=== PATIENT | female | born 1940 | race Caucasian/White ===

== ENCOUNTER 2021-05-31 21:12 | Observation (INO) ==
[2021-05-31 22:01] LABS: ABS Basophils 0.1 10^3/ul (0-0.2); ABS Eosinophils 0.4 10^3/ul (0-0.6); ABS Lymphocytes 1.1 10^3/ul (1.0-4.8); ABS Monocytes 0.5 10^3/ul (0-0.8); Eosinophil % 7.9 %; Hematocrit 41 % (35-47); Hemoglobin 13.9 g/dL (12.0-16.0); Lymphocyte % 21.5 %; Mean Corpuscular HGB Conc 34 g/dL (31-36); Mean Corpuscular Hemoglobin 29 pg (27-31); Mean Corpuscular Volume 86 fL (80-97); Mean Platelet Volume 8.3 fL (7.4-10.4); Nucleated Red Blood Cells % 0.1; Platelet Count 266 10^3/uL (150-450); Red Blood Count 4.76 10^6 /uL (3.70-4.87); Red Cell Distribution Width 15 % (10-15); White Blood Count 5.1 10^3/uL (3.5-10.8)
[2021-05-31 22:15] LABS: INR 0.99 (0.86-1.15)
[2021-05-31 22:18] LABS: ALT 10 U/L (7-52); AST 20 U/L (13-39); Albumin 4.5 g/dL (3.2-5.2); Albumin/Globulin Ratio 1.5 (1-3); Alkaline Phosphatase 64 U/L (35-149); Anion Gap 9 mmol/L (2-11); Blood Urea Nitrogen 13 mg/dL (6-24); CO2 Carbon Dioxide 28 mmol/L (22-32); Chloride 98 mmol/L (101-111); Glucose 118 mg/dL (70-100); Magnesium 1.8 mg/dL (1.9-2.7); Potassium 3.1 mmol/L (3.5-5.0); Sodium 135 mmol/L (135-145); Total Protein 7.5 g/dL (6.4-8.9)
[2021-05-31] MEDS ORDERED: Nitro 2% OINT (Nitroglycerin) 1 INCH/PAK TOPICAL ONE (22:22)
[2021-05-31] MEDS ORDERED: Magnesium Sulfate IV 1GM/100ML 1 GM/100 ML BAG IV ONE (22:23)
[2021-05-31] MEDS ORDERED: Potassium Chlor 10 meq TAB PO ONE (22:25)
[2021-05-31 22:38] LABS: Troponin I 0.05 ng/mL (<0.03)
[2021-05-31] MEDS ORDERED: Diltiazem IV BAG D5W Premix 125 MG/125 ML BAG IV SCH (23:00)
[2021-05-31 23:53] LABS: Rapid COVID-19 Molecular Undetected (Undetected)
[2021-06-01] MEDS ORDERED: Heparin DRIP 25,000 UNITS BAG 25,000 UNITS/500 ML BAG IV SCH ×2 (00:15→05:15)
[2021-06-01 00:44] LABS: Troponin I 0.06 ng/mL (<0.03)
[2021-06-01] MEDS ORDERED: Heparin 5000 UNITS/ML 1 mL VIAL IV SCH ×2 (01:00→06:00)
[2021-06-01] MEDS ORDERED: Albuterol HFA INHALER 8 gm MDI INH PRN (02:24)
[2021-06-01 04:01] LABS: Cholesterol 172 mg/dL; HDL Cholesterol 44.5 mg/dL; LDL Cholesterol 102 mg/dL; Triglycerides 127 mg/dL
[2021-06-01 04:34] LABS: Troponin I 0.08 ng/mL (<0.03)
[2021-06-01] MEDS ORDERED: Nitro 2% OINT (Nitroglycerin) 1 INCH/PAK TOPICAL ONE (05:10)
[2021-06-01] MEDS ORDERED: Heparin 5000 UNITS/ML 1 mL VIAL SUBCUT SCH (06:00)
[2021-06-01 06:26] LABS: ABS Basophils 0.1 10^3/ul (0-0.2); ABS Eosinophils 0.3 10^3/ul (0-0.6); ABS Lymphocytes 0.9 10^3/ul (1.0-4.8); ABS Monocytes 0.6 10^3/ul (0-0.8); ABS Neutrophils 3.5 10^3/ul (1.5-7.7); Eosinophil % 5.4 %; Hematocrit 38 % (35-47); Hemoglobin 12.5 g/dL (12.0-16.0); Lymphocyte % 17.2 %; Mean Corpuscular HGB Conc 33 g/dL (31-36); Mean Corpuscular Hemoglobin 29 pg (27-31); Mean Corpuscular Volume 87 fL (80-97); Mean Platelet Volume 8.6 fL (7.4-10.4); Platelet Count 231 10^3/uL (150-450); Red Blood Count 4.33 10^6 /uL (3.70-4.87); Red Cell Distribution Width 14 % (10-15); White Blood Count 5.3 10^3/uL (3.5-10.8)
[2021-06-01] MEDS: Mometasone/Formoter 200/5 MDI INH SCH ×2 (09:58→20:05)
[2021-06-01 10:32] LABS: Troponin I 0.08 ng/mL (<0.03)
[2021-06-02 05:24] LABS: Hematocrit 40 % (35-47); Hemoglobin 13.4 g/dL (12.0-16.0); Mean Corpuscular HGB Conc 34 g/dL (31-36); Mean Corpuscular Hemoglobin 29 pg (27-31); Mean Corpuscular Volume 86 fL (80-97); Mean Platelet Volume 8.5 fL (7.4-10.4); Platelet Count 242 10^3/uL (150-450); Red Blood Count 4.63 10^6 /uL (3.70-4.87); Red Cell Distribution Width 15 % (10-15); White Blood Count 4.7 10^3/uL (3.5-10.8)
[2021-06-02 05:39] LABS: Potassium 3.7 mmol/L (3.5-5.0)
[2021-06-02] MEDS ORDERED: Regadenoson 0.4 MG/5 ML SYRINGE ONE (08:24)
[2021-06-02] MEDS ORDERED: Aminophylline 25 MG/ML VIAL ONE (08:24)
[2021-06-02] MEDS: Mometasone/Formoter 200/5 MDI INH SCH (08:55)
[2021-06-02 12:06] VITALS: BP 130/60
== END 2021-06-02 15:30 | disposition home or self-care (01) ==
LOC: ED 21:12 → EDHOLD 21:12 → SUATTDRO 06-01 00:01 → MEDTELE 06-01 14:55
PROVIDERS: ADMIT Internal Medicine; ATTEND Internal Medicine